=== PATIENT | female | born 1960 | race Caucasian/White ===

== ENCOUNTER → 2016-12-11 | Outpatient (CLI) | payer BC ==
[~2016-12-11] MED LIST: COUMADIN5 MG PO; FLEXERIL10 MG PO; LOPRESSOR PO; LOSARTAN POTASS50 MG PO; MOBIC PO; NORVASC10 MG PO; SOTALOL AF80 MG PO; SPIRONOLAC1 TAB 25/2 PO; WELLBUTRIN PO; ZOCOR20 MG PO
--- NOTE | ~2016-12-11 | MY29 ---
[facility] A Service of [facility] & [facility] RADIOLOGY TEXT RESULTS PATIENT: EDEL BOYCE LOCATION: [facility] : 64 UNIT #: [id number] AGE: [address]: Ruthie Rodriguez APRN SEX: F ORDER DR: [id number] [facility] [address] [place], [place] [address] [id number] O MR#: [id number] Acc #: [id number] NAME: EDEL BOYCE : 1960 SEX: F STUDY DATE/TIME: 12/11/2016 15:22 UNIT: [facility] ROOM: STUDY DESCRIPTION: [facility] SCREENING W/ CAD BILAT Attending Physician: Ruthie Rodriguez A.P.R.N. Referring Physician: Ruthie Rodriguez A.P.R.N. Ordering Physician: Ruthie Rodriguez A.P.R.N. Primary Care Physician: Ruthie Rodriguez A.P.R.N. MEDICAL IMAGING REPORT This report is preliminary unless electronic signature is present EXSM Bilateral digital screening mammogram CAD DATE: 12/11/2016 HISTORY No personal history of breast cancer. Personal history of ovarian cancer. No family history of breast cancer. No current complaints. COMPARISON Bilateral screening mammogram 02/25/2014, 11/22/2011. Right breast diagnostic mammogram and ultrasound 04/11/2014. FINDINGS CC and MLO views obtained of each breast utilizing digital technique and reviewed with an FDA-approved CAD device. Scattered fibroglandular densities. Oval circumscribed 5 mm nodule in the upper outer right breast is unchanged, in keeping with benign finding such as an intramammary lymph node. It is stable from a most remote available mammogram dated 04/16/2010. Fibronodular density within the anterior third of the left breast along the posterior nipple line is thought to be unchanged, as well. No new nodules are identified. No architectural distortion or suspicious clustered microcalcification. IMPRESSION BIRADS 2. Benign findings. Routine bilateral screening mammogram is recommended in year. Patients over the age of 40 are entered into a reminder system with target due date for the next mammogram. A result letter will also be sent to the patient. [facility] A Service of [facility] RADIOLOGY TEXT RESULTS PATIENT: EDEL BOYCE LOCATION: [facility] : 64 UNIT #: [id number] AGE: [address]: Ruthie Rodriguez APRN SEX: F ORDER DR: BIRADS: 2 - benign findings Dictated by... Caitlyn Garcia M.D. THIS IS AN ELECTRONICALLY VERIFIED REPORT Caitlyn Garcia M.D. at 12/13/2016 1:52 PM [facility]/jodi TD: 12/12/2016 10:02 JOB #: [id number] MEDICAL IMAGING REPORT Page 1 of 1 COPY
== END | disposition home or self-care (01) ==
LOC: CWCC 14:50
DX: Z12.31 Encounter for screening mammogram for malignant neoplasm of breast (principal)
CPT/HCPCS: G0202